=== PATIENT | female | born 1980 | race Caucasian/White ===

== ENCOUNTER 2017-09-27 15:56 | Emergency (ER) | payer OTHER ==
[~2017-09-27] VITALS: Ht 162.6 cm; Wt 65.5 kg
[~2017-09-27 15:56] MED LIST: ALBINS INH; ALBUAER2 INH; SYMIN160 INH
[2017-09-27 15:58] VITALS: TEMP 36.8; Ht 162.6 cm; Wt 65.5 kg
[2017-09-27] MEDS ORDERED: LIDOCAINE 4% W/AFRIN NASAL SOLN 4ML EXT STA (16:11)
[2017-09-27] MEDS ORDERED: OXYMETAZOLINE HCL 0.05% NA SPR 15 ML BTL ONE (16:18)
[2017-09-27] MEDS ORDERED: ACET-1693 PO (18:12)
[2017-09-27] MEDS ORDERED: MOME100A INH (18:22)
[2017-09-27] MEDS ORDERED: SILVER NITR/POTASSIUM NITRATE APPLICATOR ONE (18:37)
--- NOTE | 2017-09-27 19:26 | EMERGENCY ROOM VISIT NOTE ---
History First contact with patient: 16:05 Chief Complaint: NOSE BLEED (MINOR) Stated Complaint: SEVERE NOSE BLEED History of Present Illness The patient is a 37 year old female who presents to the Emergency Room with complaints of nosebleed since 1230 PM. She reports yesterday she had a spontaneous nose bleed from the right nare which was brief. She then used her nail and picked at the clot, but did not have any bleeding after. Today, she was eating lunch and the bleeding started on its own. She reports it was only from the right nare. It was profuse with clots as well. She waited 2-3 hours before coming to the ED and was applying pressure as well. She was coughing and gagging blood up. Upon arrival, she still had persistent bleeding from the R nare. She is not on any blood thinners. She has not had any nosebleeds in the past. Review of Systems See HPI for pertinent positives & negatives. A total of 10 systems reviewed and were otherwise negative. Past Medical/Surgical History Medical Problems: (1) Asthma Family History No pertinent FHx. Social History Smoking Status: Never Smoker Alcohol Use: heavy (reports heavy alcohol use) Marital Status: Housing Status: lives with family Occupation Status: unemployed Current/Historical Medications Scheduled Acetaminophen Tab (Tylenol), 650 MG PO UD Albuterol (Ventolin Hfa), 2 PUFFS INH PRN Scheduled PRN Mometasone Furoate-Formoterol (Dulera 100/5 Mcg), 2 PUFFS INH BID PRN for SOB/ Wheezing Allergies Cipro, Quinolones Physical Exam Vital Signs Date Time Temp Pulse Resp B/P (MAP) Pulse Ox O2 Delivery O2 Flow Rate FiO2 09/27/17 18:27 85 18 139/86 96 Room Air 09/27/17 15:58 36.8 80 16 157/69 96 Room Air Physical Exam GENERAL: Awake, alert, well-appearing, in no acute distress HENT: Profuse bleeding from R nare. Upon further inspection, spot of bleeding noted to be artery in anterior medial nasal chamber of R nare. Oropharynx unremarkable. EYES: Normal conjunctiva. Sclera non-icteric. NECK: Supple. No nuchal rigidity. FROM. No JVD. RESPIRATORY: Clear to auscultation. CARDIAC: Regular rate, normal rhythm. Extremities warm and well perfused. Pulses equal. ABDOMEN: Soft, non-distended. No tenderness to palpation. No rebound or guarding. No masses. MUSCULOSKELETAL: Chest examination reveals no tenderness. The back is symmetrical on inspection without obvious abnormality. There is no CVA tenderness to palpation. No joint edema. LOWER EXTREMITIES: Calves are equal size bilaterally and non-tender. No edema. No discoloration. NEURO: Normal sensorium. No sensory or motor deficits noted. SKIN: No rash or jaundice noted. Medical Decision & Procedures Medications Administered Affrin nasal spray ED Course 1600: The patient was evaluated in room C4. A complete history and physical exam was performed. I discussed the case with the attending Dr. Prado. 1625: The patient's bleeding has continued. Dr. Prado applied the Afrin spray to the patient's nose. 1628: Dr. Prado applied HEMADERM powder to the patient's nose. He then inserted a rapid rhino. She also refused blood work that we had ordered to check her platelet count. 1705: I checked on the patient, she still had persistent bleeding. We inflated the balloon further. 1735: The patient was comfortable, we continued to monitor. 1815: The patient still had persistent bleeding. Dr. Prado's shift had ended and he had discussed this with Dr. Tovar, who came with me to re-evaluate the patient. 1845: Dr Cagle was able to use silver nitrate to cauterize the lesion. 1930: I checked on the patient, she was comfortable and had not had further bleeding. Medical Decision 37 yo F with acute epistaxis - differential includes arterial bleed, venous bleed, foreign body insertion, mucus drainage, infection. The patients nose was evaluated and packed initially, but she had persistent bleeding. Dr. Goff was able to cauterize the area of bleeding successfully. The patient had improvement of her bleeding and it stopped, and then was monitored for a further hour. She was given appropriate discharge instructions and discharged home in good condition. Impression Primary Impression: Nosebleed Departure Information Dispostion Home / Self-Care Condition GOOD Forms WORK / SCHOOL INSTRUCTIONS, HOME CARE DOCUMENTATION FORM, IMPORTANT VISIT INFORMATION Patient Instructions Nosebleeds - [facility], [facility] Additional Instructions Follow up in 3 days to get the nasal packing removed. You can do this at your doctor's office, at an Urgent Care, or come back to the Emergency Department for this. PLEASE DO NOT REMOVE THE PACKING YOURSELF. You can keep the syringe with you and if you feel you need it to be more secure you should ADD 1cc of air into the end of it, and make sure it is taped onto your face. We would recommend AVOIDING scratching inside or putting anything inside your nose. Do not blow your nose either. If you nose any worsening of any of your symptoms, please return to the Emergency Department. If you ever have another nosebleed in the future, you can use the Affrin nasal spray once and then apply the clip, then SEEK MEDICAL ATTENTION.
[2017-09-27 19:43] VITALS: BP 135/80; PULSE 63; O2SAT 98
--- NOTE | 2017-09-28 09:43 | EMERGENCY ROOM VISIT NOTE ---
History Report prepared by Fredis: Chris Puentes Under the Supervision of: Dr. Oscar Prado M.D. First contact with patient: 16:05 Chief Complaint: NOSE BLEED (MINOR) Stated Complaint: SEVERE NOSE BLEED History of Present Illness The patient is a 37 year old female who presents to the Emergency Room with complaints of constant right-sided nose bleeding beginning a few hours ago. She noticed her symptoms while eating lunch. She states that her rate of bleeding appears to have improved since it began, but it has not stopped. The patient is not on any blood thinners. She denies any cold-like symptoms. She denies picking at the inside of her nose. The patient denies chance of . She denies abdominal pain, vomiting, or black or bloody stool. She notes that she always bruises easily. The patient admits to drinking a lot of alcohol on a regular basis. Source of History: patient Onset: A few hours ago Position: nose (right-sided) Quality: other (bleeding) Timing: constant, other (improving) Associated Symptoms: No vomiting, No abdominal pain, No melena, No hematochezia Review of Systems See HPI for pertinent positives & negatives. A total of 10 systems reviewed and were otherwise negative. Past Medical & Surgical Medical Problems: (1) Asthma Family History No pertinent family history stated. Social History Smoking Status: Never Smoker Marital Status: Occupation Status: employed Current/Historical Medications Scheduled Acetaminophen Tab (Tylenol), 650 MG PO UD Albuterol (Ventolin Hfa), 2 PUFFS INH PRN Scheduled PRN Mometasone Furoate-Formoterol (Dulera 100/5 Mcg), 2 PUFFS INH BID PRN for SOB/ Wheezing Allergies Coded Allergies: Quinolones (Verified Allergy, Mild, 09/27/17) Ciprofloxacin (Verified Allergy, Unknown, unknown, 09/27/17) Physical Exam Vital Signs Date Time Temp Pulse Resp B/P (MAP) Pulse Ox O2 Delivery O2 Flow Rate FiO2 09/27/17 19:43 63 18 135/80 98 09/27/17 18:27 85 18 139/86 96 Room Air 09/27/17 15:58 36.8 80 16 157/69 96 Room Air Physical Exam Constitutional: Vital signs reviewed. Eyes: Pupils are equal round reactive to light. Conjunctiva are noninjected. ENT: Pharynx is clear without erythema or exudate. Bleeding from the right septum. Mucous membranes are moist. Neck supple without meningeal signs. Respiratory: Clear to auscultation bilaterally. Breath sounds are equal bilaterally. Cardiovascular: Regular rate and rhythm. No rubs or gallops. GI: Soft, nondistended and nontender. Bowel sounds are present. Musculoskeletal: No peripheral edema. No lower extremity tenderness. Integumentary: No cyanosis. Neurological: The patient is awake and alert. No focal deficits. Psychiatric: Normal affect. Medical Decision & Procedures Laboratory Results Laboratory results as reviewed by me. ED Course 1606: The patient was evaluated in room C4. A complete history and physical exam was performed. 1611: Ordered Afrin W/ Lidocaine 4% 4 mL EXT. 1625: The patient's bleeding has continued. I applied the Afrin spray to the patient's nose. 1628: I applied HEMADERM powder to the patient's nose. I examined the patient's right nostril and identified a large site of bleeding. We discussed cauterization, and agreed that it was not warranted at the moment. 1631: The patient states that her bleeding feels to be improving. 1709: I checked in on the patient. She still has some bleeding from her nose, but only a small amount. She does not want a rapid rhino at this time. The patient also refused blood work at this time. Medical Decision Resident Physician Supervision Note: I did evaluate and examine this patient myself. I did guide management for the patient. I agree with the resident's Dr. Sherrell Marie assessment as discussed. Please see the resident's dictation for further details. This is a 37-year-old female presents with a nosebleed. I did perform a limited focused review of portions of the patient's old chart on the electronic medical record. The patient has had no recent pertinent visits to this hospital. I did evaluate the patient as noted above. The patient is presenting with a nosebleed. Initially she stated that the nosebleed was spontaneous and so we did wish to check some blood work on her including platelet count and liver function tests. She does state that she has a history of easy bruising. She denies any other bleeding. She refused blood work. She also later told the resident that she was picking her nose when the bleeding started. A nasal clamp was placed which slow the bleeding down. The patient was then asked to blow her nose and Afrin was sprayed into her nose. The clamp was replaced. It was held therefore 40 minutes but unfortunately the patient continued to have bleeding. I did place a 4-1/2 rapid Rhino into the right nares without complication. I did inflate the balloon with 4 cc of air. She was observed for some time. She did have rebleeding. I did readjust the rapid Rhino. This did not achieve hemostasis and so cautery was performed by Dr. Pruett and hemostasis was achieved. Medication Reconcilliation Current Medication List: was personally reviewed by me Blood Pressure Screening Patient's blood pressure: Elevated blood pressure Blood pressure disposition: Referred to PCP Impression Primary Impression: Epistaxis Scribe Attestation The scribe's documentation has been prepared under my direct and personally reviewed by me in its entirety. I confirm that the note above accurately reflects all work, treatment, procedures, and medical decision making performed by me. Departure Information Dispostion Home / Self-Care Referrals Jai Salgado M.D. (PCP) Patient Instructions My [facility]
== END 2017-09-27 19:44 | disposition home or self-care (01) ==
LOC: C.EDB 15:57 → C.EDC 19:44
DX: R04.0 Epistaxis (principal); J45.909 Unspecified asthma, uncomplicated